=== PATIENT | male | born 1980 | race Caucasian/White ===

== ENCOUNTER 2017-03-04 21:54 | Emergency (ER) | payer MEDICAID ==
[2017-03-05] MEDS ORDERED: Ibuprofen TAB* 600 MG PO ONE (00:37)
[2017-03-05] MEDS ORDERED: NS 0.9% 1000 ML* 1,000 ML IV SCH (00:45)
[2017-03-05 01:30] LABS: ABS Basophils 0.1 10^3/ul (0-0.2); ABS Eosinophils 0.1 10^3/ul (0-0.6); ABS Lymphocytes 1.8 10^3/ul (1.0-4.8); ABS Monocytes 1.1 10^3/ul (0-0.8); ABS Neutrophils 11.4 10^3/ul (1.5-7.7); ABS Nucleated RBC 0 10^3/ul; Eosinophil % 0.4 % (0-6); Hematocrit 40 % (42-52); Hemoglobin 13.5 g/dl (14.0-18.0); Lymphocyte % 12.2 % (25-47); Mean Corpuscular HGB Conc 34 g/dl (31-36); Mean Corpuscular Hemoglobin 32 pg (27-31); Mean Corpuscular Volume 93 fL (80-94); Mean Platelet Volume 8 um3 (7.4-10.4); Nucleated Red Blood Cells % 0; Platelet Count 298 10^3/ul (150-450); Red Blood Count 4.24 10^6/ul (4.0-5.4); Red Cell Distribution Width 13 % (10.5-15); White Blood Count 14.3 10^3/ul (3.5-10.8)
[2017-03-05 01:46] LABS: EGFR Non-African American 83.6 (>60)
[2017-03-05 03:10] VITALS: BP 127/71
--- NOTE | 2017-03-05 08:13 | RAD ---
INDICATION: Cough and fever x3 days COMPARISON: Chest x-ray December 12, 2014 TECHNIQUE: PA and lateral views of the chest were obtained. FINDINGS: The heart and mediastinum are normal in size and contour. The lungs are grossly clear. There is no evidence of large pleural effusion. Visualized bones are normal for the patient's age. There is no radiographic evidence of free air beneath the diaphragm IMPRESSION: No radiographic evidence of acute cardiopulmonary disease.
--- NOTE | 2017-03-05 20:40 | ED ---
Carmelina Bennett Emily, scribed for Wilber Hinkle MD on 03/05/17 at 0036 . Complex/Multi-Sys Presentation - HPI Summary HPI Summary: This patient is a 37 year old M presenting to [facility] with a chief complaint of general myalgias and intermittent cough that began 2 days ago. The patient rates the pain 7/10 in severity. Symptoms aggravated by nothing. Symptoms alleviated by nothing. Patient reports dental pain, nasal congestion, and vomiting. Patient denies abd pain. Medications reviewed. Allergies reviewed. - History Of Current Complaint Chief Complaint: EDUpperRespComplaint Hx Obtained From: Patient Onset/Duration: Sudden Onset, Lasting Days, Still Present Timing: Constant, Days Severity Currently: Mild Severity Initially: Mild Aggravating Factor(s): Nothing Alleviating Factor(s): Nothing Associated Signs And Symptoms: Positive: Other - Positive dental pain, nasal congestion, and vomiting. Negative abd pain. - Allergies/Home Medications Allergies/Adverse Reactions: Allergies Allergy/AdvReac Type Severity Reaction Status Date / Time No Known Allergies Allergy Verified 03/04/17 22:16 PMH/Surg Hx/FS Hx/Imm Hx Previously Healthy: No Endocrine/Hematology History: Denies: Hx Anticoagulant Therapy, Hx Diabetes, Hx Thyroid Disease Cardiovascular History: Reports: Other Cardiovascular Problems/Disorders - HAD STRESS TEST TO RULE OUT VAVLE ISSUES REPORT WAS CLEAR Denies: Hx Hypertension, Hx Pacemaker/ICD Respiratory History: Reports: Hx Asthma - A CHILD, Hx Chronic Obstructive Pulmonary Disease (COPD), Other Respiratory Problems/Disorders - COPD History: Denies: Hx Renal Disease Musculoskeletal History: Reports: Hx Arthritis - LOWER BACK, Other Musculoskeletal History - LEFT SHOULDER INJURY Sensory History: Reports: Hx Contacts or Glasses Denies: Hx Hearing Aid Opthamlomology History: Reports: Hx Contacts or Glasses Neurological History: Reports: Hx Migraine - HX OF, NO MEDS PT. 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 BILAT HERNIA REPAIR A . shoulder tendon repair Hx Anesthesia Reactions: No Infectious Disease History: No Infectious Disease History: Denies: Hx Hepatitis, Hx Human Immunodeficiency Virus (HIV), Traveled Outside the [place] in Last 30 Days - Family History Known Family History: Positive: None, Hypertension Family History: R & n/C - Social History Occupation: Employed Full-time Lives: With Family Alcohol Use: Occasionally Alcohol Amount: BEER 2X MONTH Hx Substance Use: Yes Substance Use Type: Reports: None Substance Use Comment - Amount & Last Used: MARIJUANA SMOKED 2 WEEKS AGO Hx Tobacco Use: Yes Smoking Status (MU): Current Every Day Smoker Type: Cigarettes Amount Used/How Often: 1 PPD Review of Systems Positive: Dental Pain, Other - Positive nasal congestion Positive: Cough Positive: Vomiting Positive: Myalgia All Other Systems Reviewed And Are Negative: Yes Physical Exam - Summary Physical Exam Summary: Appearance: Well-appearing, Well-nourished Skin: Warm, Dry, No rash Eyes: Normal, PERRL, EOMI, sclera anicteric ENT: Normal Neck: Supple, nontender Respiratory: Clear to auscultation Cardiovascular: S1, S2, no murmur, no rub, no gallop Abdomen: Soft, nontender, no organomegaly Bowel sounds: Present Musculoskeletal: Normal, Strength/ROM Intact, no edema, pulses symmetrical Neurological: Normal, A&Ox3, cranial nerves II-XII WNL, follows commands, gait not tested, sensation intact to pin and light touch Psychiatric: affect normal, behavior appropriate, dressed appropriately, judgment intact Triage Information Reviewed: Yes Vital Signs On Initial Exam: Initial Vitals Temp Pulse Resp BP Pulse Ox 104.0 F 109 18 123/75 97 03/04/17 22:13 03/04/17 22:13 03/04/17 22:13 03/04/17 22:13 03/04/17 22:13 Vital Signs Reviewed: Yes Diagnostics - Vital Signs Vital Signs Temp Pulse Resp BP Pulse Ox 03/04/17 22:13 104.0 F 109 18 123/75 97 - Laboratory Result Diagrams: 03/05/17 01:19 03/05/17 01:19 Lab Statement: Any lab studies that have been ordered have been reviewed, and results considered in the medical decision making process. - Radiology CXR Radiology Interpretation Completed By: ED Physician - CXR reveals, per ED physician, no acute disease. Complex Multi-Symp Course/Dx Assessment/Plan: This patient is a 37 year old M presenting to [facility] with a chief complaint of general myalgias and intermittent cough that began 2 days ago. Physical Exam Findings. Nml. CXR reveals, per ED physician, no acute disease. In the ED course the patient was given Ibuprofen and fluids. Patient will be discharged with a prescription for Amoxicillin and with follow up from PCP. The patient is agreeable with this plan. - Diagnoses Provider Diagnoses: Bronchitis Discharge - Discharge Plan Condition: Fair Disposition: HOME Prescriptions: Amoxicillin PO (*) [Amoxicillin 875 MG (*)] 875 mg PO BID 7 Days #14 tab Patient Education Materials: Acute Bronchitis (ED) Referrals: Natalie Hyman MD [Primary Care Provider] - The documentation as recorded by the Carmelina simental Emily accurately reflects the service I personally performed and the decisions made by me, Wilber Hinkle MD.
== END 2017-03-05 03:09 | disposition home or self-care (01) ==
LOC: ED 21:54
DX: J40 Bronchitis, not specified as acute or chronic (principal); K08.89 Other specified disorders of teeth and supporting structures; R09.81 Nasal congestion; F17.210 Nicotine dependence, cigarettes, uncomplicated
CPT/HCPCS: 36415; 71046; 80053; 85025; 87502; 99283; A9270-GY

== ENCOUNTER 2017-05-18 14:37 | Emergency (ER) | payer MEDICAID, OTHER ==
[2017-05-18 14:55] VITALS: BP 111/63
--- NOTE | 2017-05-18 15:37 | UC ---
Marcial Bennett Natalie, scribed for Osvaldo Solitario MD on 05/18/17 at 1531 . Ear Complaint HPI - HPI Summary HPI Summary: The pt is a 37 y/o M presenting to [facility] c/o decreased hearing in his right ear for the past three days. The pain is described as a pressure. The pain is rated 3/10. He denies any trauma to his head or ear, and he does not have a sore throat. He has not had any previous problems with his ear before. - History of Current Complaint Chief Complaint: UCEar Stated Complaint: EAR PAIN Time Seen by Provider: 05/18/17 15:19 Hx Obtained From: Patient Onset/Duration: Lasting Days - starting 3 days ago, Still Present Severity Initially: Moderate Severity Currently: Moderate Pain Intensity: 3 Pain Scale Used: 0-10 Numeric Aggravating Factors: Nothing Alleviating Factors: Nothing Associated Signs/Symptoms: Positive: Hearing Loss. Negative: Trauma to Ear - Allergies/Home Medications Allergies/Adverse Reactions: Allergies Allergy/AdvReac Type Severity Reaction Status Date / Time No Known Allergies Allergy Verified 03/04/17 22:16 PMH/Surg Hx/FS Hx/Imm Hx Other History Of: Negative For: Anticoagulant Therapy - Surgical History Surgical History: Yes Surgery Procedure, Year, and Place: CRANIOSYNOSTOSIS A . BILAT HERNIA REPAIR A . shoulder tendon repair - Family History Known Family History: Positive: Hypertension Family History: R & n/C - Social History Alcohol Use: Occasionally Alcohol Amount: BEER 2X MONTH Substance Use Type: None Substance Use Comment - Amount & Last Used: MARIJUANA SMOKED 2 WEEKS AGO Smoking Status (MU): Current Every Day Smoker Type: Cigarettes Amount Used/How Often: 1 PPD When Did the Patient Quit Smoking/Using Tobacco: 05/12/2015 Household Exposure Type: Cigarettes Review of Systems All Other Systems Reviewed And Are Negative: Yes Physical Exam Triage Information Reviewed: Yes Appearance: Well-Appearing, No Pain Distress Vital Signs: Initial Vital Signs Temp 100.1 F 05/18/17 14:49 Pulse 72 05/18/17 14:49 Resp 16 05/18/17 14:49 BP 111/63 05/18/17 14:49 Pulse Ox 97 05/18/17 14:49 Vital Signs Reviewed: Yes Eyes: Positive: Other: - EOMI, TYRA ENT: Positive: Other - right TM erythematous with fluid behind it, positive rhinorrhea Neck: Positive: Supple, Nontender Respiratory: Positive: Other: - CTA, breath sounds present Cardiovascular: Positive: RRR Abdomen Description: Positive: Nontender, Soft Bowel Sounds: Positive: Present Musculoskeletal Exam: Normal Musculoskeletal: Positive: Strength Intact, ROM Intact Neurological: Positive: Other: - sensory/motor intact, A&O x3 Psychological: Positive: Other: - affect/mood appropriate Skin: Positive: Other - warm, color reflects adequate perfusion, dry Ear Complaint Course/Dx - Course Course Of Treatment: Medications reviewed. Allergies noted. - Differential Dx/Diagnosis Provider Diagnoses: RIGHT OTITIS MEDIA Discharge - Sign-Out/Discharge Documenting (check all that apply): Discharge - Discharge Plan Condition: Stable Disposition: HOME Discharge Disposition Comment: The pt will be discharged home. Prescriptions: Amoxicillin/Clavulanate SUSP* [Augmentin SUSP*] 880 mg PO BID #220 ml Patient Education Materials: Ear Infection (ED) Referrals: Natalie Hyman MD [Primary Care Provider] - Additional Instructions: FOLLOW UP WITH YOUR DOCTOR. GET RECHECKED FOR ANY WORSENING OF YOUR CONDITION OR QUESTIONS OR CONCERNS. - Billing Disposition and Condition Condition: STABLE Disposition: HOME The documentation as recorded by the Marcial simental Natalie accurately reflects the service I personally performed and the decisions made by me, Osvaldo Solitario MD.
== END 2017-05-18 15:40 | disposition home or self-care (01) ==
LOC: UCEAST 14:37
DX: H66.91 Otitis media, unspecified, right ear (principal); F17.210 Nicotine dependence, cigarettes, uncomplicated
CPT/HCPCS: 99212; G0463

== ENCOUNTER 2017-06-28 16:02 | Emergency (ER) | payer OTHER ==
--- OUTSIDE RECORDS SUMMARY | 2017-06-28 16:37 | XMS REPORT ---
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 Rafael Nicole Office Visit 05/02/2011 9:00a [facility] Internal Medicine Natalie Hyman, 26354 724.2 - Rafael Nicole 305.1 722.93 Office Visit 11/02/2008 9:30a [facility], [address] 724.2 Felecia Nicole Plan of Care No Information Available
[2017-06-28 17:55] VITALS: BP 118/74
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
== END 2017-06-28 17:55 | disposition home or self-care (01) ==
LOC: ED 16:02
DX: L02.31 Cutaneous abscess of buttock (principal); L03.312 Cellulitis of back [any part except buttock and flank]; F17.210 Nicotine dependence, cigarettes, uncomplicated
CPT/HCPCS: 99282

== ENCOUNTER 2017-10-31 21:33 | Emergency (ER) | payer SELFPAY ==
[2017-10-31 22:53] LABS: ABS Basophils 0.1 10^3/ul (0-0.2); ABS Eosinophils 0.3 10^3/ul (0-0.6); ABS Lymphocytes 4.3 10^3/ul (1.0-4.8); ABS Monocytes 1.2 10^3/ul (0-0.8); ABS Neutrophils 7.2 10^3/ul (1.5-7.7); ABS Nucleated RBC 0 10^3/ul; Eosinophil % 2.3 % (0-6); Hematocrit 41 % (42-52); Hemoglobin 13.9 g/dl (14.0-18.0); Lymphocyte % 33.2 % (25-47); Mean Corpuscular HGB Conc 34 g/dl (31-36); Mean Corpuscular Hemoglobin 32 pg (27-31); Mean Corpuscular Volume 94 fL (80-94); Mean Platelet Volume 8.1 um3 (7.4-10.4); Nucleated Red Blood Cells % 0.2; Platelet Count 291 10^3/ul (150-450); Red Blood Count 4.38 10^6/ul (4.00-5.40); Red Cell Distribution Width 13 % (10.5-15)
[2017-10-31 22:59] LABS: INR 0.92 (0.77-1.02)
[2017-10-31 23:11] LABS: EGFR Non-African American 84.5 (>60)
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
[2017-10-31] MEDS ORDERED: Iohexol 300* (CONTRAST) 10 ML SDV IV ONE (23:47)
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
--- NOTE | 2017-11-01 00:50 | RAD ---
EXAM: CT Chest With Intravenous Contrast CLINICAL HISTORY: 37 years old, male; Pain; Abdominal pain; Flank; Right; Chest wall pain; Patient HX: Rt rib and rt sided abd pain /rt shoulder pain; Additional info: [facility] [id number]. TECHNIQUE: Axial computed tomography images of the chest with intravenous contrast. All CT scans at this facility use at least one of these dose optimization techniques: automated exposure control; mA and/or kV adjustment per patient size (includes targeted exams where dose is matched to clinical indication); or iterative reconstruction. Coronal and sagittal reformatted images were created and reviewed. CONTRAST: 85 mL of OMNIPAQUE 300 administered intravenously. COMPARISON: No relevant prior studies available. FINDINGS: Lungs: Paraseptal and centrilobular emphysematous changes are seen at the lung apices and at the left lung base. There is atelectasis at the left lung base. Pleural space: No pneumothorax is seen. No significant effusion. Heart: Unremarkable. No cardiomegaly. No significant pericardial effusion. Bones/joints: Intra-articular air is seen in the right glenohumeral joint. No dislocation or fracture is detected. Soft tissues: Unremarkable. Vasculature: The thoracic aorta is normal caliber. No aneurysm or dissection is seen. Lymph nodes: Unremarkable. No enlarged lymph nodes. IMPRESSION: Emphysematous changes of lungs. No acute fracture identified. Intra-articular air at the right glenohumeral joint. Correlate with clinical information and with mechanism of injury. EXAM: CT Abdomen and Pelvis With Intravenous Contrast CLINICAL HISTORY: 37 years old, male; Pain; Abdominal pain; Flank; Right; Chest wall pain; Patient HX: Rt rib and rt sided abd pain /rt shoulder pain; Additional info: [facility] [id number]. TECHNIQUE: Axial computed tomography images of the abdomen and pelvis with intravenous contrast. All CT scans at this facility use at least one of these dose optimization techniques: automated exposure control; mA and/or kV adjustment per patient size (includes targeted exams where dose is matched to clinical indication); or iterative reconstruction. Coronal and sagittal reformatted images were created and reviewed. CONTRAST: 85 mL of OMNIPAQUE 300 administered intravenously. 85 mL of OMNIPAQUE 300 administered intravenously. COMPARISON: CHEST WO CT CHEST W/O 01/20/2013 4:20 PM FINDINGS: Lung bases: Unremarkable. No mass. No consolidation. ABDOMEN: Liver: Unremarkable. No mass. Gallbladder and bile ducts: Unremarkable. No calcified stones. No ductal dilation. Pancreas: Unremarkable. No mass. No ductal dilation. Spleen: Unremarkable. No splenomegaly. Adrenals: Unremarkable. No mass. Kidneys and ureters: Unremarkable. No solid mass. No hydronephrosis. Stomach and bowel: There are several air-filled loops of small bowel which are mildly prominent. Several air-fluid levels are seen. No mural thickening or pneumatosis intestinalis. No obstruction. PELVIS: Appendix: No findings to suggest acute appendicitis. Bladder: Unremarkable. No mass. Reproductive: Unremarkable as visualized. ABDOMEN and PELVIS: Intraperitoneal space: No free fluid. No free air. Bones/joints: No acute fracture is seen. No dislocation. Vasculature: Unremarkable. No abdominal aortic aneurysm. Lymph nodes: Unremarkable. No enlarged lymph nodes. IMPRESSION: No fracture or traumatic visceral injury identified. Findings suggest ileus.
[2017-11-01 01:19] VITALS: BP 128/74
--- NOTE | 2017-11-01 08:22 | RAD ---
Indication: Right shoulder pain. 4 views of the right shoulder demonstrates no fracture or dislocation. Minimal AC joint arthritis is noted. No other bone or joint abnormality is identified. IMPRESSION: AC joint arthritis without fracture. R1
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
== END 2017-11-01 01:18 | disposition home or self-care (01) ==
LOC: ED 21:33
DX: S16.1XXA Strain of muscle, fascia and tendon at neck level, initial encounter (principal); S20.211A Contusion of right front wall of thorax, initial encounter; V43.52XA Car driver injured in collision with other type car in traffic accident, initial encounter; Y93.89 Activity, other specified; Y92.413 State road as the place of occurrence of the external cause; M25.511 Pain in right shoulder; M19.011 Primary osteoarthritis, right shoulder; R53.83 Other fatigue; R10.9 Unspecified abdominal pain; F17.210 Nicotine dependence, cigarettes, uncomplicated
CPT/HCPCS: 36415; 70450; 71260; 72125; 74177; 80053; 83605; 85025; 85610; 86850; 86900; 86901; 99283; Q9967

== ENCOUNTER 2017-12-22 22:38 | Emergency (ER) | payer OTHER ==
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
--- NOTE | 2017-12-23 00:02 | ED ---
Upper Extremity Pain - HPI Summary HPI Summary: 37 year old male presents with potentially dislocated right shoulder today. He states he slammed his shoulder into a wall to have it relocate. He states his previous shoulder dislocation feel similar. her has shoulder reconstructive surgery 2 months ago to fix his meniscus and to do something at the biceps tendon. He states he is having extreme pain due to the injury. States it happened when he was lifting something overhead at work and object fell behind him and he felt a pop. He took some diclofenac without relief. States he is here because he needs something stronger for the pain. No numbness or tingling. He is right-handed. 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 - History of Current Complaint Chief Complaint: EDExtremityUpper Stated Complaint: RT SHOULDER INJURY Time Seen by Provider: 12/22/17 23:31 - Allergies/Home Medications Allergies/Adverse Reactions: Allergies Allergy/AdvReac Type Severity Reaction Status Date / Time No Known Allergies Allergy Verified 10/31/17 21:49 Home Medications: Home Medications Diclofenac Sodium EC TAB* [Voltaren EC TAB*] 75 mg PO BID 12/22/17 [History Confirmed 12/22/17] PMH/Surg Hx/FS Hx/Imm Hx Endocrine/Hematology History: Denies: Hx Anticoagulant Therapy, Hx Bone Marrow Disease, Hx Diabetes, Hx Sickle Cell Disease, Hx Thyroid Disease, Hx Anemia Cardiovascular History: Reports: Other Cardiovascular Problems/Disorders - HAD STRESS TEST TO RULE OUT VAVLE ISSUES REPORT WAS CLEAR Denies: Hx Hypertension, Hx Pacemaker/ICD Respiratory History: Reports: Hx Asthma - A CHILD, Hx Chronic Obstructive Pulmonary Disease (COPD), Other Respiratory Problems/Disorders - COPD, HEAVY SMOKER FOR 17 YRS History: Denies: Hx Renal Disease Musculoskeletal History: Reports: Hx Arthritis - LOWER BACK, Other Musculoskeletal History - 2016 LEFT SHOULDER INJURY, RIGHT SHOULDER surgery 2 days ago Sensory History: Reports: Hx Contacts or Glasses - GLASSES Denies: Hx Cataracts, Hx Glaucoma, Hx Hearing Aid Opthamlomology History: Reports: Hx Contacts or Glasses - GLASSES Denies: Hx Cataracts, Hx Glaucoma Neurological History: Reports: Hx Migraine - HX OF, NO MEDS PT. 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 BILAT [place]IA REPAIR [place]. [place] [facility] [place] Anesthesia Reactions: No Infectious Disease History: No Infectious Disease History: Denies: Hx Hepatitis, Hx Human Immunodeficiency Virus (HIV), Traveled Outside the [place] in Last 30 Days - Family History Known Family History: Positive: None, Hypertension Family History: R & n/C - Social History Alcohol Use: None Alcohol Amount: BEER 2 X MONTH Hx Substance Use: Yes Substance Use Type: Reports: None Substance Use Comment - Amount & Last Used: MARIJUANA SMOKED 2 WEEKS AGO Hx Tobacco Use: Yes Smoking Status (MU): Light Every Day Tobacco Smoker Type: Cigarettes Amount Used/How Often: 1 PPD FOR 17 YRS Length of Time of Smoking/Using Tobacco: 17 YRS Have You Smoked in the Last Year: No Review of Systems Negative: Fever Negative: Chest Pain Negative: Shortness Of Breath Positive: Myalgia - right shoulder All Other Systems Reviewed And Are Negative: Yes Physical Exam Triage Information Reviewed: Yes Vital Signs On Initial Exam: Initial Vitals Temp Pulse Resp BP Pulse Ox 98.8 F 83 14 131/74 96 12/22/17 22:39 12/22/17 22:39 12/22/17 22:39 12/22/17 22:39 12/22/17 22:39 Vital Signs Reviewed: Yes Appearance: Positive: Well-Appearing Skin: Positive: Warm, Dry Head/Face: Positive: Normal Head/Face Inspection Eyes: Positive: Normal, Conjunctiva Clear ENT: Positive: Pharynx normal Respiratory/Lung Sounds: Positive: Clear to Auscultation, Breath Sounds Present Cardiovascular: Positive: Normal, RRR Musculoskeletal: Positive: Limited @ - right shoulder, Other - tenderness right shoulder, good pulses, 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 - Radiology shoulder Radiology Interpretation Completed By: ED Physician Summary of Radiographic Findings: no fx Course/Dx - Course Course Of Treatment: 37 year old male presents with potentially dislocated right shoulder today. He states he slammed his shoulder into a wall to have it relocate. He states his previous shoulder dislocation feel similar. her has shoulder reconstructive surgery 2 months ago to fix his meniscus and to do something at the biceps tendon. He states he is having extreme pain due to the injury. States it happened when he was lifting something overhead at work and object fell behind him and he felt a pop. He took some diclofenac without relief. States he is here because he needs something stronger for the pain. No numbness or tingling. He is right-handed. 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 On exam neurovascularly intact. Tenderness over right shoulder. X- ray read by me as normal. Told to use sling that has at home. We'll give a short course of pain medication. Told to follow-up with orthopedic. Patient understands and agrees with plan. - Diagnoses Differential Diagnosis/HQI/PQRI: Positive: Fracture (Closed), Sprain, Other - dislocation Provider Diagnoses: Right shoulder injury Discharge - Sign-Out/Discharge Documenting (check all that apply): Patient Departure - Discharge Plan Condition: Good Disposition: HOME Prescriptions: oxyCODONE TAB* [Roxycodone TAB 5 mg*] 5 mg PO Q6H PRN #8 tab MDD 4 PRN Reason: Pain Patient Education Materials: R.I.C.E. Treatment (ED) Forms: *Work Release Referrals: Natalie Hyman MD [Primary Care Provider] - Randall Patrick MD [Medical Doctor] - Additional Instructions: Take Tylenol and ibuprofen every 6 hours as needed for pain use oxycodone every 6 hours for extreme pain Ice/heat Follow up with ortho use sling Return to ED if develop any new or worsening symptoms - Billing Disposition and Condition Condition: GOOD Disposition: Home
[2017-12-23] MEDS ORDERED: oxyCODONE TAB* 5 MG TAB PO ONE (00:06)
[2017-12-23 00:28] VITALS: BP 0/0
--- NOTE | 2017-12-23 08:11 | RAD ---
INDICATION: Right shoulder pain COMPARISON: Similar radiograph dated November 01, 2017 TECHNIQUE: 4 views of the right shoulder were obtained. FINDINGS: The adequately corticated bones are in normal alignment. Mild degenerative changes of the acromioclavicular joint include marginal osteophyte formation and mild sclerotic change of the articulating acromial surface. No fracture, dislocation or focal bony abnormality is seen. IMPRESSION: MILD DEGENERATIVE JOINT DISEASE OF THE RIGHT ACROMIOCLAVICULAR JOINT SIMILAR IN APPEARANCE TO THE PREVIOUS RADIOGRAPH OF THE SHOULDER. R0
== END 2017-12-23 00:10 | disposition home or self-care (01) ==
LOC: ED 22:38
DX: S49.91XA Unspecified injury of right shoulder and upper arm, initial encounter (principal); W23.0XXA Caught, crushed, jammed, or pinched between moving objects, initial encounter; Y92.9 Unspecified place or not applicable; F17.210 Nicotine dependence, cigarettes, uncomplicated
CPT/HCPCS: 99282; A9270-GY

== ENCOUNTER 2018-03-02 10:06 | Day surgery (SDC) | payer OTHER ==
[~2018-03-02 10:06] MED LIST: Buffered Lidocaine 0.9% SYRIN* 5 ML/SYR SYRINGE INTRADERM ONE; Lactated Ringers 1000 ML Bag* 1,000 ML IV SCH; Lidocaine 2% PF * 5 ML VIAL ONE; Midazolam* 1 MG/ML 2 ML VIAL (2 MG) ONE; Propofol* 10 MG/ML 20 ML BTL ONE; ROPIVACAINE 5 MG/ML 30 ML BTL (0.5%) ONE; Rocuronium* 10 MG/ML VIAL ONE; fentaNYL* 50 MCG/ML 2 ML VIAL (100 MCG VIAL) ONE
[2018-03-02] MEDS ORDERED: EPINEPHRINE 1 MG/ML 1 ML VIAL ONE (10:07)
[2018-03-02] MEDS ORDERED: Dexamethasone IV* 4 MG/ML 1 ML (4 MG) ONE ×2 (10:08→12:12)
[2018-03-02] MEDS ORDERED: ceFAZolin 2 GM PREMIX in ORs 2 GM/50 ML BAG IVPB ONE (10:27)
[2018-03-02] MEDS ORDERED: Ropivacaine* 2 MG/ML 20 ML VIAL (0.2%) ONE (11:16)
[2018-03-02] MEDS ORDERED: KETAMINE HCL* 50 MG/ML 10 ML VIAL ONE (11:54)
[2018-03-02] MEDS ORDERED: HYDROmorphone INJ1* 1 MG/ML SYRINGE IV PRN (12:19)
[2018-03-02] MEDS ORDERED: DiMENhydriNATE IV* 50 MG/ML VIAL IV PUSH PRN (12:19)
[2018-03-02] MEDS ORDERED: Naloxone* 0.4 MG/ML 1 ML VIAL IV PRN (12:19)
[2018-03-02] MEDS ORDERED: Levalbuterol 0.63MG/3ML NEB* UNIT OF USE INH PRN (12:19)
[2018-03-02] MEDS ORDERED: Buffered Lidocaine 0.9% SYRIN* 5 ML/SYR SYRINGE INTRADERM ONE (12:21)
[2018-03-02] MEDS ORDERED: Acetaminophen TAB* 325 MG PO ONE (12:22)
[2018-03-02] MEDS ORDERED: HYDROmorphone INJ1* 1 MG/ML SYRINGE ONE ×2 (12:48→13:28)
[2018-03-02] MEDS ORDERED: Neostigmine Methylsulfate* 1 MG/ML 10 ML VIAL (1 mg/ml) ONE (12:49)
[2018-03-02] MEDS ORDERED: Glycopyrrolate IV* 0.2 MG/ML 1 ML VIAL ONE (12:49)
[2018-03-02] MEDS ORDERED: Ketorolac INJ* 30 MG/ML 1 ML VIAL ONE (12:49)
[2018-03-02] MEDS ORDERED: Metoclopramide IV* 5 MG/ML 2 ML VIAL ONE (12:49)
[2018-03-02] MEDS ORDERED: Ondansetron INJ* 2 MG/ML VIAL ONE (12:49)
[2018-03-02] MEDS ORDERED: Lactated Ringers 1000 ML Bag* 1,000 ML IV SCH (13:00)
[2018-03-02] MEDS ORDERED: oxyCODONE/Acetamin 5/325 MG* TAB ONE (13:28)
[2018-03-02] MEDS ORDERED: Propofol* 500 MG/50 ML BTL ONE (14:00)
[2018-03-02] MEDS ORDERED: Acetaminophen IV 1GM/100ML * 100 ML ONE (14:05)
[2018-03-02 14:20] VITALS: BP 132/100
--- NOTE | 2018-03-03 02:10 | OP ---
DATE OF OPERATION: 03/02/18 - [facility] DATE OF : 82 SURGEON: Randall Patrick MD COTTON FEEDER: GIUSEPPE Mcdermott ANESTHESIOLOGIST: Dr. Woodward. ANESTHESIA: General with nerve block. 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 OPERATIVE PROCEDURE: 1. Right shoulder arthroscopy with anterior labral repair. 2. Subacromial decompression with acromioplasty. INDICATIONS: Luis Alberto Campuzano is a 38-year-old male, who had a previous right shoulder arthroscopy with biceps tenotomy and Regeneten patch, who presented with dislocation after his shoulder surgery he had a persistent pain and stiffness as well as instability of the shoulder. Risks and benefits were discussed at length included, but were not limited to, bleeding; infection; damage to nerves, vessels, surrounding structures; wound nonhealing; persistent pain; need for further surgery; scarring; stiffness; incomplete relief of symptoms; risk of anesthesia. COMPLICATIONS: None. ESTIMATED BLOOD LOSS: Minimal. IMPLANTS USED: Three Bioraptors 2.9 mm. DESCRIPTION OF PROCEDURE: The patient was greeted in the preoperative area by the attending surgeon. Correct extremity was marked and consent was confirmed. The patient was brought back to the operating suite, where he was placed in supine position on the operating table after which, he was placed in the left lateral decubitus position with all bony prominences padded. He was secured with pegboard. The right shoulder was draped unsterile with 10 pounds of traction. The right shoulder was then prepped and draped in the usual sterile fashion beginning with Chlorhexidine soap, scrub, and alcohol wipe and a final prep with ChloraPrep. After appropriate surgical pause indicating side, site, procedure, and administration of antibiotics, the standard postero-lateral portal was made with 11 blade. Scope was introduced into the joint. The head was subluxed anteriorly. There was significant synovitis throughout the entirety of the shoulder. There was a positive drive-through sign. The low anterior portal was made using 18-gauge needle for needle localization. An 8.5-mm cannula was then placed. A second cannula was placed superiorly in the interval. After this was done, the labrum was then carefully elevated off the glenoid. The soft tissue was okay quality, somewhat poor. The bone quality was much better. Once the labrum was elevated from the 3 o'clock to the 5:30 position, the glenoid was then carefully rasped using a shaver, red ball rasp, and double- sided rasp. The capsule was also rasped as well. Once the labrum and the glenoid were prepared beginning inferiorly at the 5:30 position, a 2.9 Bioraptor was then placed with excellent purchase. Sutures were then passed in a horizontal mattress configuration and tied down using arthroscopic-knot tying. This helped to eliminate drive-through sign. The lateral checo was carefully released to allow for less tension on this repair. A second anchor was placed through the 4:30 position and passed in a simple fashion and then tied down. A third anchor was placed about 3:30 position and passed in a similar fashion in a simple fashion. Once this was done, the head was found to be more centrally sitting. Final images were obtained. Attention was then directed to the subacromial space. The scope was positioned in the subacromial space. Lateral portal was made in an outside-in fashion. There was abundant significant thick bursa that was present. Shaver was then used to remove the abundant bursa that was present. This revealed the rotator cuff was found to be intact. Once all the thick adherent bursa and deltoid adhesions were released, the acromion was skeletonized using electrocautery device. A 4-0 oval bur was then used to do a revision acromioplasty. Final images were obtained. The portals were closed with 3-0 nylon. Sterile dressings were applied. The wounds were copiously irrigated with sterile saline. Cryo/Cuff and UltraSling were applied. He was awoken from anesthesia and transferred to the PACU in stable condition. POSTOPERATIVE PLAN: He will be nonweightbearing. He will be in a sling. He will start therapy within next 10 days or so. DVT prophylaxis was considered, but deferred. He will be discharged on pain medication and antibiotics. I will see the patient back in 10 to 14 days. [id number]/[facility] #: [id number] MTDD
== END 2018-03-02 14:31 | disposition home or self-care (01) ==
LOC: OR 10:06
PROVIDERS: ATTEND Orthopaedic Surgery
DX: M25.311 Other instability, right shoulder (principal); M75.41 Impingement syndrome of right shoulder; M25.611 Stiffness of right shoulder, not elsewhere classified; J44.9 Chronic obstructive pulmonary disease, unspecified; Z87.891 Personal history of nicotine dependence
CPT/HCPCS: A9270-GY; J0690; J1100; J1170; J1885; J2250; J2405; J2704; J2710; J2765; J2795; J3010